=== PATIENT | male | born 1970 | race Caucasian/White ===

== ENCOUNTER → 2018-06-11 | Outpatient (CLI) | payer OTHER ==
[~2018-06-11] MED LIST: OMNIPAQUE 350 MG/ML, 100ML BOTTLE ONE
[2018-06-11 10:08] LABS: CREATININE 1.31 mg/dL (0.7-1.3)
== END | disposition home or self-care (01) ==
LOC: RAD 09:34
PROVIDERS: ATTEND Internal Medicine Gastroenterology
DX: K44.9 Diaphragmatic hernia without obstruction or gangrene (principal); M47.897 Other spondylosis, lumbosacral region
CPT/HCPCS: 36415; 74177; 82565; Q9967